=== PATIENT | male | born 1950 | race Asian ===

== ENCOUNTER → 2016-12-29 | Outpatient (CLI) | payer OTHER, BC ==
[~2016-12-29] MED LIST: AMLO-114 PO; HYG/25 PO; IBUP-103 PO
--- NOTE | 2016-12-29 14:32 | DIAGNOSTIC IMAGING REPORT ---
CHEST 2 VIEWS ROUTINE CLINICAL HISTORY: R06.02 SOB dyspnea COMPARISON STUDY: 06/12/2015 FINDINGS: The bones soft tissues and hemidiaphragms are normal. The cardiomediastinal silhouette is normal. The lungs are clear. The pulmonary vasculature is normal. IMPRESSION: Negative chest. Electronically signed by: Jose Mueller M.D. 12/29/2016 2:31 PM Dictated Date/Time: 12/29/2016 2:30 PM
== END | disposition home or self-care (01) ==
LOC: C.RAD1850 14:13
PROVIDERS: ATTEND Family Medicine
DX: R06.02 Shortness of breath (principal)